=== PATIENT | female | born 1950 | race Caucasian/White ===

== ENCOUNTER 2022-11-03 01:46 | Day surgery (SDC) | payer MEDICARE, SELFPAY ==
[2022-10-19 12:55] VITALS: BMI 25.8
[2022-11-03 09:44] VITALS: BP 148/81; PULSE 74; RESP 16; TEMP 36.7; O2SAT 99
[2022-11-03] MEDS: LACTATED RINGERS 1,000 ML 150 ML IV CONT (09:51)
--- NOTE | 2022-11-03 09:55 | PM.HPGS ---
History of Present Illness History of Present Illness Consent: Risks, benefits, and alternatives have been discussed and questions answered. Patient agrees to proceed with procedure. Chief complaint: hx colon polyps Narrative: Tosin Márquez is a 71 year old female Presents for screening colonoscopy. Patient's current weight appetite and bowel movements are normal. Patient denies abdominal pain. She has had no bleeding. Patient has had colon polyps on 2 previous colonoscopies. Family history significant her father had colon polyps. Patient has a history of irritable bowel syndrome. Currently bowel habits and abdominal discomfort is resolved with fiber supplements on a routine basis. Patient presents today for screening colonoscopy. Review of Systems Review of Systems: Review of systems noncontributory. [facility] Social History Social History Smoking status: Never smoker Substance use: never Substance use type: does not use Living arrangements: with family Spiritual care concerns: No Meds Home Medications and Allergies Home Medications Medication Instructions Recorded Confirmed Type aspirin 81 mg tablet 81 mg PO DAILY 10/19/22 10/19/22 History atorvastatin 10 mg tablet 10 mg PO DAILY 10/19/22 10/19/22 History calcium polycarbophil 625 mg 1,250 mg PO DAILY 10/19/22 10/19/22 History tablet (FiberCon) felodipine 10 mg tablet,extended 10 mg PO DAILY 10/19/22 10/19/22 History release 24 hr irbesartan 300 mg tablet 300 mg PO DAILY 10/19/22 10/19/22 History Allergies Allergy/AdvReac Type Severity Reaction Status Date / Time No Known Allergies Allergy Unverified 11/03/22 09:41 Vital Signs Vital Signs - 24 hr 11/03/22 09:44 Temperature 98.1 F Pulse Rate 74 Respiratory Rate 16 Blood Pressure 148/81 H Pulse Oximetry 99 Oxygen Delivery Room Air Exam Narrative: Physical exam reveals patient to be alert. Vital signs stable. HEENT exam is unremarkable. Patient is anicteric. Lungs are clear to auscultation and percussion. Heart is without murmur or extra sounds. Abdomen bowel sounds are present soft nontender with no organomegaly. Digital external rectal exam is normal. 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 Family history is significant her father had colon polyps. Plan for colonoscopy at this time. Consider follow-up in 5 years as well.
--- NOTE | 2022-11-03 09:58 | WPDANESEPPF ---
Anes - Initial Pre Proc Eval Procedure: Operation Date: 11/03/22 11:00 Proposed Procedures p Colonoscopy - Jose Alejandro Diamond MD Date/Time: 11/03/22 09:58 Surgeon: Jose Alejandro Diamond MD Pre Op Diagnosis: hx colon polyps Patient Data Age: 71 Gender: F Height: 1.68 m Weight: 74.8 kg Last Vital Signs Temp 98.1 F 11/03/22 09:44 Pulse 74 11/03/22 09:44 Resp 16 11/03/22 09:44 BP 148/81 H 11/03/22 09:44 Pulse Ox 99 11/03/22 09:44 O2 Del Method Room Air 11/03/22 09:44 Allergies Allergy/AdvReac Type Severity Reaction Status Date / Time No Known Allergies Allergy Unverified 11/03/22 09:41 Home Medications Medication Instructions Recorded Confirmed Type aspirin 81 mg tablet 81 mg PO DAILY 10/19/22 10/19/22 History atorvastatin 10 mg tablet 10 mg PO DAILY 10/19/22 10/19/22 History calcium polycarbophil 625 mg 1,250 mg PO DAILY 10/19/22 10/19/22 History tablet (FiberCon) felodipine 10 mg tablet,extended 10 mg PO DAILY 10/19/22 10/19/22 History release 24 hr irbesartan 300 mg tablet 300 mg PO DAILY 10/19/22 10/19/22 History Patient hx anesthesia problems: none Family hx anesthesia problems: none Results Review: All pre-operative results and documents have been reviewed as part of the pre-operative evaluation. [facility] Social History Social History Smoking status: Never smoker Substance use: never Substance use type: does not use Living arrangements: with family Spiritual care concerns: No Anes - Eval Final PreProcedure Day of Procedure 11/03/22 09:58 Patient weight: normal Heart: regular rate and rhythm Lungs: clear to auscultation Airway: Mallampati scale class II Neurological: alert and oriented Last oral intake: >/= 8 hours ASA classification: II Emergent: no Anesthetic plan: proceed Anesthesia type and monitoring: general GIVS and standard monitoring Results Review: All pre-operative results and documents have been reviewed as part of the pre-operative evaluation. Informed Consent: The patient's anesthetic plan and its attendant risks and benefits were discussed with the patient/family/POA. Questions were solicited and answers provided to the satisfaction of the patient/family/POA.
[2022-11-03 11:20] VITALS: BP 135/78; PULSE 72; RESP 18; O2SAT 99
[2022-11-03 11:30] VITALS: BP 136/85; PULSE 70; RESP 20; O2SAT 100
[2022-11-03 11:40] VITALS: BP 138/78; PULSE 72; RESP 18; O2SAT 100
== END 2022-11-03 11:48 | disposition home or self-care (01) ==
PROVIDERS: PCP Family Medicine; Visit Provider Internal Medicine Gastroenterology
PROC: 0DJD8ZZ Inspection of Lower Intestinal Tract, Via Natural or Artificial Opening Endoscopic (ICD-10-PCS; CPT 45378; principal; 2022-11-03 11:00)
DX: Z12.11 Encounter for screening for malignant neoplasm of colon (principal); D12.5 Benign neoplasm of sigmoid colon; K57.30 Diverticulosis of large intestine without perforation or abscess without bleeding; K64.8 Other hemorrhoids; Z83.71 Family history of colonic polyps; Z79.82 Long term (current) use of aspirin
CPT/HCPCS: 45385; 88305; J2405; J2704; J7120